=== PATIENT | female | born 1955 | race Caucasian/White ===

== ENCOUNTER 2021-08-13 11:21 | Emergency (ER) | payer OTHER ==
--- NOTE | 2021-08-13 12:06 | RAD REPORT ---
EXAM DESCRIPTION: CT - Ct Stroke Brain Wo Cont - 08/13/2021 11:59 am CLINICAL HISTORY: Neuro deficit, acute, stroke suspected Headache, drowsiness, CVA symptomology COMPARISON: No comparisons TECHNIQUE: All CT scans are performed using dose optimization technique as appropriate and may inclu de automated exposure control or mA/KV adjustment according to patient size. FINDINGS: No intracranial hemorrhage, hydrocephalus or extra-axial fluid collection.Mild brain atrop hy noted.No areas of brain edema or evidence of midline shift. The paranasal sinuses and mastoids are clear. The calvarium is intact. IMPRESSION: No acute intracranial abnormality. The findings were discussed with Dr. Santacruz in the ER On 08/13/2021 at 12:01 p.m. by telephone.
--- NOTE | 2021-08-13 12:29 | RAD REPORT ---
EXAM DESCRIPTION: RAD - Chest Single View - 08/13/2021 12:04 pm CLINICAL HISTORY: weak Chest pain. COMPARISON: No comparisons FINDINGS: Portable technique limits examination quality. The lungs are grossly clear. The heart is normal in size. No displaced fractures. IMPRESSION: No acute intrathoracic process suspected.
[2021-08-13 13:03] LABS: Hematocrit 36.1 % (36.0-45.0); MPV 8.4 fL (7.6-11.3); Potassium 4.9 mmol/L (3.5-5.1); RBC Red Blood Cell Count 4.13 M/uL (3.86-4.86)
[2021-08-13 13:08] LABS: Protime INR 0.92
--- NOTE | 2021-08-13 16:44 | RAD REPORT ---
EXAM DESCRIPTION: MRI - Brain W/Wo Cont - 08/13/2021 4:19 pm CLINICAL HISTORY: Weakness COMPARISON: MRA Head Wo Cont dated 08/13/2021; Ct Stroke Brain Wo Cont dated 08/13/2021 TECHNIQUE: Sagittal T1-weighted images were obtained along with PD/heavily T2-weighted and T2-FLAIR images. Axial DWI and ADC mapping sequences were also obtained along with coronal heavily T2-weighted images were obtained. Post contrast enhanced images were obtained. FINDINGS: No intracranial hemorrhage, mass or acute infarction. No edema or shift of midline structu res. No extra-axial fluid collections. Signal voids are seen as a normal finding in the major intracr anial vessels. Mild nonspecific T2/FLAIR hyperintense signal foci within the centrum semiovale and co aidee radiata. No abnormal enhancement. No mastoid effusion.Paranasal sinuses are clear. IMPRESSION: No acute intracranial abnormality. No abnormal enhancement. Mild chronic small vessel is chemic changes.
--- NOTE | 2021-08-13 16:51 | RAD REPORT ---
EXAM DESCRIPTION: MRI - MRA Head Wo Cont - 08/13/2021 4:18 pm CLINICAL HISTORY: Weakness CVA COMPARISON: Abdomen Pelvis W Contrast dated 02/22/2021; Abdomen Pelvis W Contrast dated 06/21/2020 ; Abdomen Pelvis W Contrast dated 03/19/2017; Abdomen Pelvis W Contrast dated 04/02/2016; CT ABD PEL VIS W CONTRAST dated 04/12/2008No comparisons FINDINGS: 3D noncontrast [id number] MR angiography of the lummi of Mata was performed. No aneurysm, flow-limiting stenosis or vascular malformation is seen. Forward flow seen in codominant vertebral arteries. The visualized dural venous sinuses appear patent. IMPRESSION: No significant flow abnormality of the lummi of Mata is identified.
--- NOTE | 2021-08-13 16:57 | RAD REPORT ---
EXAM DESCRIPTION: MRI - MRA Neck W/Wo Cont - 08/13/2021 4:19 pm CLINICAL HISTORY: Weakness COMPARISON: No comparisons FINDINGS: Contrast enhance 2D [id number] MR angiography of the neck vessels was performed. Both carotid systems are widely patent. Three vessel aortic arch. The vertebral arteries are patent a nd codominant. IMPRESSION: Unremarkable MRA of the neck. No flow limiting stenoses.
--- NOTE | 2021-08-13 17:17 | EDPHYS ---
Physician Documentation [facility] Name: Sarah Pepper Age: 65 yrs Sex: Female : 1955 Arrival Date: 08/13/2021 Time: 11:22 Bed 20 Private MD: ED Physician Parish Santacruz HPI: 08/13 15:37 This 65 yrs old Female presents to ER via Ambulatory with complaints of S/S of Possible kdr Stroke - 2 days ago. 15:37 Patient presents emergency department with weakness that results in her falling or kdr nearly falling over the past few months. This is been a progressive process. She is noted that her blood pressure has been elevated as well during this period of time. Though there are times when it is particularly low as well. Family member who is with the the patient states that there the patient's speech appears slurred. Patient had consulted her PCP who recommended that she be evaluated in the ER for possible stroke. Patient is alert and oriented and nontoxic-appearing in the ED.. Onset: The symptoms/episode began/occurred at an unknown time. Increasingly weak and off balance over the past few days. This has been an intermittent problem though for months.. Historical: - Allergies: 11:29 No Known Allergies; ss - PMHx: 11:29 Hypothyroidism; Hypertension; Chronic back pain; ss - Immunization history:: Client reports having NOT received the Covid vaccine. - Social history:: Smoking status: Patient/guardian denies using tobacco, Stopped _ months ago 15. ROS: 15:37 Constitutional: Negative for fever, chills, and weight loss, Eyes: Negative for injury, kdr pain, redness, and discharge, Neck: Negative for injury, pain, and swelling, Cardiovascular: Negative for chest pain, palpitations, and edema, Respiratory: Negative for shortness of breath, cough, wheezing, and pleuritic chest pain, Abdomen/GI: Negative for abdominal pain, nausea, vomiting, diarrhea, and constipation, Back: Negative for injury and pain, MS/Extremity: Negative for injury and deformity, Skin: Negative for injury, rash, and discoloration, Psych: Negative for depression, anxiety, suicide ideation, homicidal ideation, and hallucinations, Allergy/Immunology: Negative for hives, rash, and allergies, Endocrine: Negative for neck swelling, polydipsia, polyuria, polyphagia, and marked weight changes. 15:37 Neuro: Positive for gait disturbance, speech changes, weakness, Off Balance and weak. Exam: 15:50 ECG was reviewed by the Attending Physician. kdr 17:29 Constitutional: This is a well developed, well nourished patient who is awake, alert, kdr and in no acute distress. Head/Face: Normocephalic, atraumatic. Eyes: Pupils equal round and reactive to light, extra-ocular motions intact. Lids and lashes normal. Conjunctiva and sclera are non-icteric and not injected. Cornea within normal limits. Periorbital areas with no swelling, redness, or edema. Neck: Trachea midline, no thyromegaly or masses palpated, and no cervical lymphadenopathy. Supple, full range of motion without nuchal rigidity, or vertebral point tenderness. No Meningismus. Chest/axilla: Normal chest wall appearance and motion. Nontender with no deformity. No lesions are appreciated. Cardiovascular: Regular rate and rhythm with a normal S1 and S2. No gallops, murmurs, or rubs. Normal PMI, no JVD. No pulse deficits. Respiratory: Lungs have equal breath sounds bilaterally, clear to auscultation and percussion. No rales, rhonchi or wheezes noted. No increased work of breathing, no retractions or nasal flaring. Abdomen/GI: Soft, non-tender, with normal bowel sounds. No distension or tympany. No guarding or rebound. No evidence of tenderness throughout. Back: No spinal tenderness. No costovertebral tenderness. Full range of motion. Skin: Warm, dry with normal turgor. Normal color with no rashes, no lesions, and no evidence of cellulitis. MS/ Extremity: Pulses equal, no cyanosis. Neurovascular intact. Full, normal range of motion. Neuro: Awake and alert, GCS 15, oriented to person, place, time, and situation. Cranial nerves II-XII grossly intact. Motor strength 5/5 in all extremities. Sensory grossly intact. Cerebellar exam normal. Normal gait. Psych: Awake, alert, with orientation to person, place and time. Behavior, mood, and affect are within normal limits. Vital Signs: 11:26 BP 100 / 82; Pulse 73; Resp 16; Temp 97.5(TE); Pulse Ox 98% on R/A; Weight 72.57 kg; ss Height 5 ft. 2 in. (157.48 cm); Pain 0/10; 12:48 BP 127 / 82; Pulse 61; Resp 20; Pulse Ox 100% on R/A; tw2 14:10 BP 151 / 86; Pulse 65; Resp 15; Pulse Ox 97% on R/A; tw2 16:24 BP 164 / 82; Pulse 84; Resp 17; Pulse Ox 100% on R/A; tw2 11:26 Body Mass Index 29.26 (72.57 kg, 157.48 cm) NIH Stroke Scale Scores: 11:31 NIHSS Score: 0 ss 17:29 NIHSS Score: 0 kdr MDM: 17:16 Patient medically screened. kdr 17:29 Data reviewed: vital signs, nurses notes, lab test result(s), radiologic studies. kdr Counseling: I had a detailed discussion with the patient and/or guardian regarding: the historical points, exam findings, and any diagnostic results supporting the discharge/admit diagnosis, lab results, radiology results, the need for outpatient follow up. 08/13 11:49 Order name: Basic Metabolic Panel; Complete Time: 14:09 kdr 08/13 11:49 Order name: CBC with Diff; Complete Time: 14:09 kdr 08/13 11:49 Order name: Protime (+inr); Complete Time: 14:09 kdr 08/13 11:49 Order name: Ptt, Activated; Complete Time: 14:09 kdr 08/13 11:49 Order name: CT Stroke Brain w/o Contrast; Complete Time: 14:09 kdr 08/13 11:49 Order name: Stroke CXR 1 View; Complete Time: 14:09 kdr 08/13 11:49 Order name: EKG; Complete Time: 11:50 kdr 08/13 11:49 Order name: Cardiac monitoring; Complete Time: 11:51 kdr 08/13 11:49 Order name: EKG - Nurse/Tech; Complete Time: 11:51 kdr 08/13 15:08 Order name: MRA Head Wo Cont; Complete Time: 16:53 EDMS 08/13 15:10 Order name: Brain W/Wo Cont; Complete Time: 16:53 EDMS 08/13 15:10 Order name: MRA Neck W/Wo Cont; Complete Time: 17:07 EDMS 08/13 11:49 Order name: IV Saline Lock; Complete Time: 12:34 kdr 08/13 11:49 Order name: Labs collected and sent; Complete Time: 12:34 [facility] 08/13 11:49 Order name: NPO; Complete Time: 17:13 [facility] 08/13 11:49 Order name: O2 Per Protocol; Complete Time: 12:34 [facility] 08/13 11:49 Order name: O2 Sat Monitoring; Complete Time: 12:34 [facility] 08/13 11:49 Order name: Stroke Swallow Screen; Complete Time: 12:44 kdr EC:50 Rate is 62 beats/min. Rhythm is regular, Sinus Rhythm with No ectopy. QRS [place] is kdr Normal. PA interval is normal. QRS interval is normal. QT interval is normal. Clinical impression: NSR w/ Non-specific ST/T Changes. Administered Medications: No medications were administered Disposition Summary: 08/13/21 17:16 Discharge Ordered Location: Home kdr Problem: new kdr Symptoms: are resolved kdr Condition: Stable kdr Diagnosis - Weakness kdr - Syncope Near kdr Followup: kdr - With: Private Physician - When: 1 - 2 days - Reason: If symptoms return, Further diagnostic work-up, Recheck today's complaints, Continuance of care, Re-evaluation by your physician Discharge Instructions: - Discharge Summary Sheet kdr - Near-Syncope, [id number] kdr - Syncope, [id number] kdr - Weakness, [id number] kdr Forms: - Medication Reconciliation Form kdr - Thank You Letter kdr NIH Stroke Scale - NIH Stroke Score Date: 08/13/2021 Time: 11:31 Total Score = 0 1a. Level of Consciousness (LOC) - 0(Alert) 1b. Level of Consciousness (LOC) (Month \T\ Age) - 0(Both) 1c. LOC Commands (Open \T\ Closes Eyes/Highway Maintenance Technician) - 0(Both) 2. Best Gaze (Lateral Gaze Paresis) - 0(Normal) 3. Visual Field Loss - 0(No visual loss) 4. Facial Palsy - 0(Normal) 5a. Left Arm: Motor (10-second hold) - 0(No drift) 5b. Right Arm: Motor (10-second hold) - 0(No drift) 6a. Left Leg: Motor (5-second hold - always test supine) - 0(No drift) 6b. Right Leg: Motor (5-second hold - always test supine) - 0(No drift) 7. Limb Ataxia (finger/nose \T\ heel/tejeda - test with eyes open) - 0(Absent) 8. Sensory Loss (pinprick arms/legs/face) - 0(Normal) 9. Best Language: Aphasia (description/naming/reading) - 0(No aphasia) 10. Dysarthria (speech clarity - read or repeat words) - 0(Normal) 11. Extinction and Inattention (visual/tactile/auditory/spatial/personal) - 0(No abnormality) Initials: NIH Stroke Scale - NIH Stroke Score Date: 08/13/2021 Time: 17:29 Total Score = 0 1a. Level of Consciousness (LOC) - 0(Alert) 1b. Level of Consciousness (LOC) (Month \T\ Age) - 0(Both) 1c. LOC Commands (Open \T\ Closes Eyes/Highway Maintenance Technician) - 0(Both) 2. Best Gaze (Lateral Gaze Paresis) - 0(Normal) 3. Visual Field Loss - 0(No visual loss) 4. Facial Palsy - 0(Normal) 5a. Left Arm: Motor (10-second hold) - 0(No drift) 5b. Right Arm: Motor (10-second hold) - 0(No drift) 6a. Left Leg: Motor (5-second hold - always test supine) - 0(No drift) 6b. Right Leg: Motor (5-second hold - always test supine) - 0(No drift) 7. Limb Ataxia (finger/nose \T\ heel/tejeda - test with eyes open) - 0(Absent) 8. Sensory Loss (pinprick arms/legs/face) - 0(Normal) 9. Best Language: Aphasia (description/naming/reading) - 0(No aphasia) 10. Dysarthria (speech clarity - read or repeat words) - 0(Normal) 11. Extinction and Inattention (visual/tactile/auditory/spatial/personal) - 0(No abnormality) Initials: kdr Signatures: Dispatcher [employer] EDMS Parish Santacruz MD MD kdr Alysha Douglas RN RN ss Corrections: (The following items were deleted from the chart) 12:34 11:49 Accucheck ordered. kdr tw2 15:08 12:23 MR STROKE PROTOCOL+MRI.RAD.BRZ ordered. EDMS EDMS
--- NOTE | 2021-08-13 17:17 | ER ---
Nurse's Notes [facility] Name: Sarah Pepper Age: 65 yrs Sex: Female : 1955 Arrival Date: 08/13/2021 Time: 11:22 Bed 20 Private MD: Diagnosis: Weakness;Syncope Near Presentation: 08/13 11:26 Chief complaint: Patient states: "I almost fell yesterday, but I had fallen 4-5 times ss over the past few months and my blood pressure goes 200/100 something and then it'll go low and I'm on blood pressure medications." Family member reports that patient's speech seems more slurred. PCP recommended that patient be evaluated in ER for possible TIA. Coronavirus screen: Client denies travel out of the [place] in the last 14 days. Ebola Screen: Patient denies exposure to infectious person. Patient denies travel to an Ebola-affected area in the 21 days before illness onset. No acute neurological deficit is noted. Pre-hospital glucose is not applicable to this patient. Initial Sepsis Screen: Does the patient meet any 2 criteria? No. Patient's initial sepsis screen is negative. Does the patient have a suspected source of infection? No. Patient's initial sepsis screen is negative. Risk Assessment: Do you want to hurt yourself or someone else? Patient reports no desire to harm self or others. Onset of symptoms is unknown. 11:26 Method Of Arrival: Ambulatory ss 11:26 Acuity: SHABNAM 3 ss Stroke Activation: Symptom onset > 6 hours Physician: Stroke Attending; Name: ; Notified At: ; Arrived At: Physician: Chief Stroke Resident; Name: ; Notified At: ; Arrived At: Physician: Stroke Resident; Name: ; Notified At: ; Arrived At: Physician: ED Attending; Name: ; Notified At: ; Arrived At: Physician: ED Resident; Name: ; Notified At: ; Arrived At: Historical: - Allergies: 11:29 No Known Allergies; ss - PMHx: 11:29 Hypothyroidism; Hypertension; Chronic back pain; ss - Immunization history:: Client reports having NOT received the Covid vaccine. - Social history:: Smoking status: Patient/guardian denies using tobacco, Stopped _ months ago 15. Screenin:31 Abuse screen: Denies threats or abuse. Denies injuries from another. Nutritional ss screening: No deficits noted. Tuberculosis screening: Never had TB. 11:39 Fall Risk None identified. tw2 12:40 Patient has been NPO before screening. The patient is alert, able to follow commands. tw2 The patient does not exhibit slurred or garbled speech The patient is not exhibiting difficulty speaking. The patient does not exhibit difficulty understanding words. The patient is able to swallow own secretions with no drooling or need for suction. Patient tolerated one teaspoon of water. No drooling, immediate coughing, gurgling, or clearing of the throat was noted. The patient tolerated 90mL of water. No drooling, immediate coughing, gurgling, or clearing of the throat was noted. The patient passed the bedside swallow screening. Oral medications may be given as ordered. Contact Physician for further diet orders. Provider notified of bedside swallow screening results: Parish Santacruz MD. Assessment: 11:39 Reassessment: pts family member at bedside states "she will just start talking really tw2 slow at times, and then fall asleep while eating other times, and then its like she has been forgetful and will ask the same question over and over again.". 11:59 Reassessment: pt is in imaging at this time, not available for blood work at this time. tw2 12:48 Reassessment: Patient appears in no apparent distress at this time. No changes from tw2 previously documented assessment. Patient and/or family updated on plan of care and expected duration. Pain level reassessed. Patient is alert, oriented x 3, equal unlabored respirations, skin warm/dry/pink. 14:10 Reassessment: Patient appears in no apparent distress at this time. No changes from tw2 previously documented assessment. Patient and/or family updated on plan of care and expected duration. Pain level reassessed. Patient is alert, oriented x 3, equal unlabored respirations, skin warm/dry/pink. 16:24 Reassessment: Patient and/or family updated on plan of care and expected duration. Pain tw2 level reassessed. Patient is alert, oriented x 3, equal unlabored respirations, skin warm/dry/pink. pt back from imaging. nad. 17:10 Reassessment: provider at bedside with results at this time. tw2 17:34 Reassessment: Patient appears in no apparent distress at this time. No changes from tw2 previously documented assessment. Patient is alert, oriented x 3, equal unlabored respirations, skin warm/dry/pink. Vital Signs: 11:26 BP 100 / 82; Pulse 73; Resp 16; Temp 97.5(TE); Pulse Ox 98% on R/A; Weight 72.57 kg; ss Height 5 ft. 2 in. (157.48 cm); Pain 0/10; 12:48 BP 127 / 82; Pulse 61; Resp 20; Pulse Ox 100% on R/A; tw2 14:10 BP 151 / 86; Pulse 65; Resp 15; Pulse Ox 97% on R/A; tw2 16:24 BP 164 / 82; Pulse 84; Resp 17; Pulse Ox 100% on R/A; tw2 11:26 Body Mass Index 29.26 (72.57 kg, 157.48 cm) ss NIH Stroke Scale Scores: 11:31 NIHSS Score: 0 ss 17:29 NIHSS Score: 0 kdr ED Course: 11:22 Patient arrived in ED. am2 11:25 Parish Santacruz MD is Attending Physician. kdr 11:29 Triage completed. ss 11:29 Arm band placed on right wrist. ss 11:33 Placed in gown. Bed in low position. Client placed on continuous cardiac and pulse tw2 oximetry monitoring. NIBP monitoring applied. media monitor on. Pulse ox on. Warm blanket given. 11:35 Zeenat Valladares, RN is Primary Nurse. tw2 11:51 EKG done, by ED staff, reviewed by Parish Santacruz MD. mh5 11:52 Patient has correct armband on for positive identification. Call light in reach. Side mh5 rails up X 1. Pillow given. 12:01 CT Stroke Brain w/o Contrast In Process Unspecified. EDMS 12:04 Stroke CXR 1 View In Process Unspecified. EDMS 12:34 Missed attempt(s): 20 gauge in right antecubital area. Bleeding controlled, band aid tw2 applied, catheter tip intact. Inserted saline lock: 22 gauge in left antecubital area, using aseptic technique. Blood collected. 14:10 Awaiting: MRI testing. tw2 15:07 Patient moved to MRI via wheelchair. tw2 16:20 MRA Head Wo Cont In Process Unspecified. EDMS 16:20 Brain W/Wo Cont In Process Unspecified. EDMS 16:21 MRA Neck W/Wo Cont In Process Unspecified. EDMS 17:34 No provider procedures requiring assistance completed. IV discontinued, intact, tw2 bleeding controlled, No redness/swelling at site. Pressure dressing applied. Administered Medications: No medications were administered Outcome: 17:16 Discharge ordered by . kdr 17:34 Discharged to home ambulatory, with family. tw2 17:34 Condition: stable 17:34 Discharge instructions given to patient, family, Instructed on discharge instructions, follow up and referral plans. Demonstrated understanding of instructions, follow-up care. 17:35 Patient left the ED. tw2 NIH Stroke Scale - NIH Stroke Score Date: 08/13/2021 Time: 11:31 Total Score = 0 1a. Level of Consciousness (LOC) - 0(Alert) 1b. Level of Consciousness (LOC) (Month \\T\\ Age) - 0(Both) 1c. LOC Commands (Open \\T\\ Closes Eyes/Local City Driver) - 0(Both) 2. Best Gaze (Lateral Gaze Paresis) - 0(Normal) 3. Visual Field Loss - 0(No visual loss) 4. Facial Palsy - 0(Normal) 5a. Left Arm: Motor (10-second hold) - 0(No drift) 5b. Right Arm: Motor (10-second hold) - 0(No drift) 6a. Left Leg: Motor (5-second hold - always test supine) - 0(No drift) 6b. Right Leg: Motor (5-second hold - always test supine) - 0(No drift) 7. Limb Ataxia (finger/nose \\T\\ heel/tejeda - test with eyes open) - 0(Absent) 8. Sensory Loss (pinprick arms/legs/face) - 0(Normal) 9. Best Language: Aphasia (description/naming/reading) - 0(No aphasia) 10. Dysarthria (speech clarity - read or repeat words) - 0(Normal) 11. Extinction and Inattention (visual/tactile/auditory/spatial/personal) - 0(No abnormality) Initials: NIH Stroke Scale - NIH Stroke Score Date: 08/13/2021 Time: 17:29 Total Score = 0 1a. Level of Consciousness (LOC) - 0(Alert) 1b. Level of Consciousness (LOC) (Month \\T\\ Age) - 0(Both) 1c. LOC Commands (Open \\T\\ Closes Eyes/Local City Driver) - 0(Both) 2. Best Gaze (Lateral Gaze Paresis) - 0(Normal) 3. Visual Field Loss - 0(No visual loss) 4. Facial Palsy - 0(Normal) 5a. Left Arm: Motor (10-second hold) - 0(No drift) 5b. Right Arm: Motor (10-second hold) - 0(No drift) 6a. Left Leg: Motor (5-second hold - always test supine) - 0(No drift) 6b. Right Leg: Motor (5-second hold - always test supine) - 0(No drift) 7. Limb Ataxia (finger/nose \\T\\ heel/tejeda - test with eyes open) - 0(Absent) 8. Sensory Loss (pinprick arms/legs/face) - 0(Normal) 9. Best Language: Aphasia (description/naming/reading) - 0(No aphasia) 10. Dysarthria (speech clarity - read or repeat words) - 0(Normal) 11. Extinction and Inattention (visual/tactile/auditory/spatial/personal) - 0(No abnormality) Initials: kdr Signatures: Dispatcher [employer] EDMS Parish Santacruz MD MD [facility] Alysha Douglas RN RN ss Wise, Tara, RN RN [facility] Micaela Hoang [facility] Lyla Navarro
[2021-08-13 18:01] VITALS: TEMP 97.5
[2021-08-13 18:06] VITALS: BP 164/82; O2SAT 100
--- NOTE | 2021-08-14 13:47 | EKG ---
Test Date: 2021-08-13 Test Time: 12:36:40 Supply Chain Logistics Manager: COLT MEASUREMENT RESULTS: Intervals: Rate: 62 DC: 192 QRSD: 92 QT: 436 QTc: 442 [place]: P: 45 DC: 192 QRS: 27 T: 73 INTERPRETIVE STATEMENTS: Normal sinus rhythm Nonspecific T wave abnormality Abnormal ECG No previous ECG available for comparison Electronically Signed On 08-14-21 13:45:54 CDT by Ambrose Gee
== END 2021-08-13 17:35 | disposition home or self-care (01) ==
LOC: ER 11:21
DX: R53.1 Weakness (principal); R55 Syncope and collapse; I10 Essential (primary) hypertension; E03.9 Hypothyroidism, unspecified
CPT/HCPCS: 93005; 85025; 80048; 36415; 85610; 85730; 70450; 71045; 70553; 70544; 70549; 99285; A9577

== ENCOUNTER 2022-02-09 13:56 | Emergency (ER) | payer OTHER ==
[2022-02-09] MEDS ORDERED: HYDROCODONE/CHLORPHEN 5 ML/OSYR ONE (15:33)
--- NOTE | 2022-02-09 15:59 | RAD REPORT ---
EXAM DESCRIPTION: RAD - Chest Pa And Lat (2 Views) - 02/09/2022 3:49 pm CLINICAL HISTORY: Cough COMPARISON: Chest Single View dated 08/13/2021 FINDINGS: Lines: None. Lungs: No evidence of edema or pneumonia. Pleural: No significant pleural effusions or pneumothorax. Cardiac: The heart size is within normal limits. Mediastinum: Within normal limits. Bones: No acute fractures. Thoracolumbar curvature. Other: None IMPRESSION: No acute cardiopulmonary disease.
[2022-02-09 18:08] LABS: SARS-COV-2 RT PCR NEGATIVE (NEGATIVE)
--- NOTE | 2022-02-09 18:29 | EDPHYS ---
Physician Documentation [facility] Name: Sarah Pepper Age: 66 yrs Sex: Female : 1955 Arrival Date: 02/09/2022 Time: 13:58 Bed 10 Private MD: Kasey Oakley ED Physician Tigre Mccann HPI: 02/09 19:31 This 66 yrs old Female presents to ER via Wheelchair with complaints of Cough, kb Abdominal Pain. 19:31 The patient or guardian reports cough, that is intermittent, described as moderate. kb Onset: The symptoms/episode began/occurred 4 day(s) ago. Severity of symptoms: At their worst the symptoms were moderate, in the emergency department the symptoms are unchanged. Modifying factors: The symptoms are alleviated by nothing, the symptoms are aggravated by nothing. Associated signs and symptoms: Pertinent positives: chest pain, with cough, rhinorrhea, Pertinent negatives: diarrhea, ear ache, fever, nausea, sore throat, vomiting. The patient has not experienced similar symptoms in the past. The patient has not recently seen a physician. Pt reports she has had cough and congestion for 4 days. states she now has pain below left breast when she coughs. . Historical: - Allergies: 15:27 No Known Allergies; ss - PMHx: 15:27 chronic back pain; Hypertension; Hypothyroidism; ss - Immunization history:: Client reports having NOT received the Covid vaccine. - Social history:: Smoking status: Patient/guardian denies using tobacco, the patient reports quitting approximately 1 years ago. ROS: 19:30 Constitutional: Negative for fever, chills, and weight loss. kb 19:30 ENT: Positive for rhinorrhea, sinus congestion. 19:30 Cardiovascular: Positive for chest pain, with cough. 19:30 Respiratory: Positive for cough. 19:30 All other systems are negative. Exam: 19:30 Constitutional: This is a well developed, well nourished patient who is awake, alert, kb and in no acute distress. Head/Face: Normocephalic, atraumatic. ENT: Moist Mucous membranes Cardiovascular: Regular rate and rhythm with a normal S1 and S2. No gallops, murmurs, or rubs. No pulse deficits. Respiratory: Respirations even and unlabored. No increased work of breathing. Talking in full sentences Abdomen/GI: Soft, non-tender. No distention Skin: Warm, dry with normal turgor. Normal color. MS/ Extremity: Pulses equal, no cyanosis. Neurovascular intact. Full, normal range of motion. Neuro: Awake and alert, GCS 15, oriented to person, place, time, and situation. Moves all extremities. Normal gait. 19:30 Chest/axilla: Palpation: tenderness, that is moderate, of the left breast, that totally reproduces the patient's complaints. Vital Signs: 15:25 BP 105 / 87; Pulse 93; Resp 20; Temp 97.4(TE); Pulse Ox 100% on R/A; Weight 72.57 kg; ss Height 5 ft. 2 in. (157.48 cm); Pain 0/10; 17:04 BP 140 / 88; Pulse 88; Resp 18; Pulse Ox 99% on R/A; em6 18:00 BP 138 / 84; Pulse 84; Resp 18; Pulse Ox 99% on R/A; iw 15:25 Body Mass Index 29.26 (72.57 kg, 157.48 cm) ss MDM: 15:31 Patient medically screened. kb 19:30 Data reviewed: vital signs, nurses notes. Data interpreted: Pulse oximetry: on room air kb is 99 %. Interpretation: normal. Counseling: I had a detailed discussion with the patient and/or guardian regarding: the historical points, exam findings, and any diagnostic results supporting the discharge/admit diagnosis, lab results, radiology results, the need for outpatient follow up, a family practitioner, to return to the emergency department if symptoms worsen or persist or if there are any questions or concerns that arise at home. ED course: Pt was prescribed antibiotics and steroids by PCP that pt picked up today. . 02/09 15:31 Order name: COVID-19/FLU A+B; Complete Time: 18:12 kb 02/09 15:31 Order name: Chest Pa And Lat (2 Views) XRAY; Complete Time: 16:02 kb Administered Medications: 15:34 Drug: Tussionex Pennkinetic ER (chlorpheniramine-hydrocodone) Suspension 5 ml Route: PO;ss 18:55 Not Given (Patient Eloped): SOLU-Medrol (methylPREDNISolone sodium succinate) 125 mg IM iw once Disposition: 19:55 Co-signature as Attending Physician, Tigre Mccann DO I was immediately available on-site ms3 in the Emergency Department for consultation in the care of the patient.. Disposition Summary: 02/09/22 18:29 Discharge Ordered Location: Home kb Condition: Stable kb Diagnosis - Acute bronchitis, unspecified kb Followup: kb - With: Emergency Department - When: As needed - Reason: Worsening of condition Followup: kb - With: Private Physician - When: 2 - 3 days - Reason: Recheck today's complaints, Continuance of care, Re-evaluation by your physician Discharge Instructions: - Discharge Summary Sheet kb - Acute Bronchitis, Adult, [id number] kb Forms: - Medication Reconciliation Form kb - Thank You Letter kb - Antibiotic Education kb - Prescription Opioid Use kb Signatures: Dispatcher [employer] EDMS Bethany Lea, COSTUME TECHNICIAN-C ISSA-Alysha Palomares, RN RN Tigre Noriega DO DO ms3 Jeannine Smalls RN iw
--- NOTE | 2022-02-09 18:29 | ER ---
Nurse's Notes [facility] Name: Sarah Pepper Age: 66 yrs Sex: Female : 1955 Arrival Date: 02/09/2022 Time: 13:58 Bed 10 Private MD: Kasey Oakley Diagnosis: Acute bronchitis, unspecified Presentation: 02/09 15:25 Chief complaint: Patient states: pain to LUQ when coughing. Fever that began last ss night, cough began 2 days ago. Pt reports she becomes sob with exertion. Coronavirus screen: Client denies travel out of the [place] in the last 14 days. Ebola Screen: Patient denies exposure to infectious person. Patient denies travel to an Ebola-affected area in the 21 days before illness onset. Initial Sepsis Screen: Does the patient meet any 2 criteria? No. Patient's initial sepsis screen is negative. Does the patient have a suspected source of infection? No. Patient's initial sepsis screen is negative. Risk Assessment: Do you want to hurt yourself or someone else? Patient reports no desire to harm self or others. Onset of symptoms was February 07, 2022. 15:25 Method Of Arrival: Wheelchair ss 15:25 Acuity: SHABNAM 3 ss Historical: - Allergies: 15:27 No Known Allergies; ss - PMHx: 15:27 chronic back pain; Hypertension; Hypothyroidism; ss - Immunization history:: Client reports having NOT received the Covid vaccine. - Social history:: Smoking status: Patient/guardian denies using tobacco, the patient reports quitting approximately 1 years ago. Screenin:00 Fall Risk Total Prabhakar Fall Scale indicates No Risk (0-24 pts). iw 17:08 Abuse screen: Denies threats or abuse. Nutritional screening: No deficits noted. em6 Tuberculosis screening: No symptoms or risk factors identified. Assessment: 17:05 General: Appears in no apparent distress. Behavior is cooperative. Pain: Complains of em6 pain in left upper quadrant Pain does not radiate. Pain currently is 7 out of 10 on a pain scale. 17:08 Neuro: Level of Consciousness is awake, alert, obeys commands, Oriented to person, em6 place, time, situation. Cardiovascular: Heart tones present Patient's skin is warm and dry. Respiratory: Airway is patent Respiratory effort is even, unlabored, Respiratory pattern is regular, symmetrical, Breath sounds are clear bilaterally. GI: Abdomen is non-distended, Bowel sounds present X 4 quads. Abd is soft and non tender X 4 quads. : No signs and/or symptoms were reported regarding the genitourinary system. EENT: No signs and/or symptoms were reported regarding the EENT system. Derm: No signs and/or symptoms reported regarding the dermatologic system. Musculoskeletal: Circulation, motion, and sensation intact. Range of motion: intact in all extremities. 18:00 Reassessment: Patient appears in no apparent distress at this time. No changes from em6 previously documented assessment. Patient and/or family updated on plan of care and expected duration. Pain level reassessed. Patient is alert, oriented x 3, equal unlabored respirations, skin warm/dry/pink. Vital Signs: 15:25 BP 105 / 87; Pulse 93; Resp 20; Temp 97.4(TE); Pulse Ox 100% on R/A; Weight 72.57 kg; ss Height 5 ft. 2 in. (157.48 cm); Pain 0/10; 17:04 BP 140 / 88; Pulse 88; Resp 18; Pulse Ox 99% on R/A; em6 18:00 BP 138 / 84; Pulse 84; Resp 18; Pulse Ox 99% on R/A; iw 15:25 Body Mass Index 29.26 (72.57 kg, 157.48 cm) ED Course: 13:58 Patient arrived in ED. mr 13:58 Kasey Oakley MD is Private Physician. mr 14:37 Bethany Lea FNP-C is [facility]. kb 14:37 Tigre Mccann DO is Attending Physician. kb 15:27 Triage completed. ss 15:27 Arm band placed on right wrist. ss 15:51 Chest Pa And Lat (2 Views) XRAY In Process Unspecified. EDMS 17:04 Virginia Hoang, RN is Primary Nurse. em6 17:04 COVID-19/FLU A+B Sent. em6 17:08 Bed in low position. Call light in reach. Side rails up X2. Pulse ox on. NIBP on. Warm em6 blanket given. 18:56 No provider procedures requiring assistance completed. Patient did not have IV access iw during this emergency room visit. Administered Medications: 15:34 Drug: Tussionex Pennkinetic ER (chlorpheniramine-hydrocodone) Suspension 5 ml Route: PO;ss 18:55 Not Given (Patient Eloped): SOLU-Medrol (methylPREDNISolone sodium succinate) 125 mg IM iw once Medication: 18:57 VIS not applicable for this client. iw Outcome: 18:29 Discharge ordered by . ramirez 18:57 Discharged to home ambulatory. iw 18:57 Condition: stable 18:57 Discharge instructions given to patient, Instructed on discharge instructions, follow up and referral plans. Demonstrated understanding of instructions, follow-up care. 18:57 Patient left the ED. iw Signatures: Dispatcher [employer] EDMS Bethany Lea, MANAGER HUMAN RESOURCES-C MANAGER HUMAN RESOURCES-Gilma Sheppard mr Jeannine Smalls, RN RN Alysha Currie RN RN ss Martinez, Erika, RN RN em6
[2022-02-09] MEDS ORDERED: METHYLPREDNISOLONE 125 MG INJ ONE (18:55)
[2022-02-09 19:02] VITALS: TEMP 97.4
[2022-02-09 19:03] VITALS: O2SAT 99
[2022-02-09 19:04] VITALS: BP 138/84
== END 2022-02-09 18:57 | disposition home or self-care (01) ==
LOC: ER 13:56
DX: J20.9 Acute bronchitis, unspecified (principal); Z20.822 Contact with and (suspected) exposure to COVID-19; I10 Essential (primary) hypertension
CPT/HCPCS: 0240U; 71046; 99284; J2930

== ENCOUNTER 2024-04-18 13:55 | Emergency (ER) | payer OTHER, MEDICARE ==
--- NOTE | 2024-04-18 14:40 | RAD REPORT ---
EXAM: Chest Single View HISTORY: weaknes COMPARISON: 02/09/2022 FINDINGS: LUNGS/PLEURA: The lungs are clear. No pleural effusions or pneumothorax. No pulmonary edema. MEDIASTINUM: The mediastinal silhouette is within normal limits. CARDIAC: The cardiac silhouette is within normal limits. UPPER ABDOMEN: No significant abnormality. BONES: No acute abnormality. LINES/TUBES/OTHER: N/A IMPRESSION: No evidence of acute cardiopulmonary disease.
--- NOTE | 2024-04-18 14:47 | RAD REPORT ---
EXAMINATION: CT HEAD WITHOUT CONTRAST CLINICAL INDICATION: Female, 68 years old.falls;Weakness TECHNIQUE: Axial CT images from the skull base to the vertex without intravenous contrast. Coronal an d sagittal reformatted images were created from the data set. One or more of the following dose reduction techniques were used: Automated exposure control, adjustment of the mA and/or kV according to patient size, and/or iterative reconstruction. Unless otherwise specified, incidental findings do not require dedicated imaging follow-up. [id number]. COMPARISON: MRI 08/13/2021 FINDINGS: INTRACRANIAL: No acute intracranial hemorrhage. No hydrocephalus. No mass effect or midline shift. Mi ld chronic small vessel ischemic changes. VASCULATURE: No visualized abnormalities in the arteries or dural venous sinuses. SCALP/SKULL: No significant soft tissue or osseous abnormalities. SINUSES: The visualized paranasal sinuses and mastoid air cells are predominantly clear. IMPRESSION: No acute intracranial abnormality.
--- NOTE | 2024-04-18 14:48 | RAD REPORT ---
EXAMINATION: CTA NECK CLINICAL INDICATION: Female, 68 years old. falls, swelling, imbalance TECHNIQUE: Axial CT images were obtained from the aortic arch to the skull base after intravenous con trast utilizing angiographic protocol with 3D post-processing (maximum intensity projection images, volume rendered images and/or shaded surface rendered images). One or more of the following dose redu ction techniques were used: Automated exposure control, adjustment of the mA and/or kV according to patient size, and/or iterative reconstruction. Unless otherwise specified, incidental findings do not require dedicated imaging follow-up. [id number]. NASCET criteria used. Mild 0-49% stenosis Moderate 50-69% stenosis Severe 70-99% stenosis COMPARISON: No prior exam. FINDINGS: AORTA: The imaged aortic arch is normal. CCA: The common carotid arteries are patent and normal in caliber. ICA/ECA: Bilateral internal and external carotid arteries are patent. There is no significant interna l carotid artery stenosis. Where applicable, degree of stenosis is measured using NASCET-like criteria. Mild atherosclerotic plaque at both proximal ICAs. VERTEBRAL: The cervical vertebral arteries are patent and codominant. SOFT TISSUE: No significant neck soft tissue abnormalities. The visualized lung apices are clear. 3D images confirm these findings. IMPRESSION: No arterial dissection or stenosis identified
[2024-04-18 14:49] LABS: Absolute Eosinophils 0.1 K/uL (0-0.5); Absolute Lymphocytes (CBC) 2.8 K/uL (0.7-4.9); Absolute Monocytes 0.5 K/uL (0.1-1.3); Absolute Neutrophil 6.7 K/uL (1.8-8.0); Basophils % 0.3 % (0-1.3); Hematocrit 42.2 % (36.0-45.0); Hemoglobin 14.7 g/dL (12.0-15.0); Lymphocytes % 27.7 % (15.3-44.8); MCH 30.6 pg (27.0-35.0); MCHC 34.8 g/dL (32.0-36.0); MCV 87.9 fL (80-100); MPV 8.7 fL (7.6-11.3); Nucleated Red Blood Cells % 0.1 % (0-0); Platelets 234 thou/uL (152-406); Red Cell Distribution Width 13.6 % (12.1-15.2)
--- NOTE | 2024-04-18 14:50 | RAD REPORT ---
EXAMINATION: CTA HEAD CLINICAL INDICATION: Female, 68 years old. DIZZINESS TECHNIQUE: Axial CT images were obtained through the head after intravenous contrast utilizing angiog raphic protocol with 3D post-processing (maximum intensity projection images, volume rendered images and/or shaded surface rendered images). One or more of the following dose reduction technique s were used: Automated exposure control, adjustment of the mA and/or kV according to patient size, and/or iterative reconstruction. Unless otherwise specified, incidental findings do not require dedic ated imaging follow-up. COMPARISON: MRI neck/head 08/13/2021 FINDINGS: ICA: The petrous, cavernous, and supraclinoid segments of the bilateral internal carotid arteries are normal. The ophthalmic artery origins are visualized and normal. The posterior communicating arteries are patent. Mild calcified plaque at the bilateral cavernous carotids. BHARTI: Anterior cerebral arteries are normal bilaterally. The anterior communicating artery is patent. MCA: Middle cerebral arteries are normal bilaterally. F[employer]: Posterior cerebral arteries are normal bilaterally. Vertebrobasilar: The vertebral arteries are patent. The basilar artery is normal in appearance. 3D images confirm these findings. IMPRESSION: No occlusion, aneurysm, or hemodynamically significant stenosis identified.
[2024-04-18 15:06] LABS: PT Prothrombin Time 10.5 SECONDS (9.4-12.5); PTT, Activated Partial Thromb 32.8 SECONDS (24.3-36.9)
[2024-04-18 15:15] LABS: ALT/SGPT 19 U/L (13-56); AST/SGOT 19 U/L (15-37); Albumin 3.8 g/dL (3.4-5.0); Alkaline Phosphatase 90 U/L (45-117); Anion Gap 5.6 mEq/L (5.0-15.0); BUN Blood Urea Nitrogen 21 mg/dL (7-18); Bicarbonate 30 mEq/L (21-32); Bilirubin Total 0.2 mg/dL (0.2-1.0); Globulin 3.9 g/dL (2.3-3.5); Glomerular Filtration Rate 50 ml/min (=/>90); Glucose Level 91 mg/dL (74-106); Magnesium 1.9 mg/dL (1.6-2.4); Potassium 4.6 mEq/L (3.5-5.1); Protein, Total 7.7 g/dL (6.4-8.2); Sodium Level 136 mEq/L (136-145)
[2024-04-18 15:19] LABS: Bilirubin Direct < 0.2 mg/dL (0-0.2); Troponin High Sensitivity < 3.0 pg/mL (<58.9)
[2024-04-18 16:25] LABS: Sqamous Epithelial <5 /HPF (None Seen); Urine Bacteria None Seen /HPF (<20); Urine Bilirubin NEGATIVE (Negative); Urine Blood Negative (Negative); Urine Clarity Clear (Clear); Urine Color Light-Yellow (Yellow); Urine Culture Reflex Order NOT NEEDED; Urine Glucose NEGATIVE (Negative); Urine Ketones NEGATIVE (Negative); Urine Microscopic Reflex YN ORDER UMIC; Urine Nitrite NEGATIVE (Negative); Urine Protein NEGATIVE (Negative); Urine RBC <5 /HPF (None Seen); Urine Urobilinogen Normal (Normal); Urine WBC <5 /HPF (<5); Urine pH 5.5 (5.0-7.0)
[2024-04-18 16:26] LABS: Specific Gravity > 1.030 (1.005-1.030)
[2024-04-18] MEDS ORDERED: NA CHLORIDE 0.9% 500 ML ONE (16:37)
--- NOTE | 2024-04-18 17:19 | ER ---
Nurse's Notes [facility] Name: Sarah Pepper Age: 68 yrs Sex: Female : 1955 Arrival Date: 04/18/2024 Time: 13:55 Bed 19 Private MD: Diagnosis: Weakness;Fall on same level, unspecified Presentation: 04/18 14:00 Chief complaint: Patient states: has been falling for a month and it seems to be ko1 getting worse, she stands up and starts shaking and falls. Coronavirus screen: At this time, the client does not indicate any symptoms associated with coronavirus-19. Ebola Screen: No symptoms or risks identified at this time. Initial Sepsis Screen: Does the patient meet any 2 criteria? No. Patient's initial sepsis screen is negative. Does the patient have a suspected source of infection? No. Patient's initial sepsis screen is negative. Risk Assessment: Do you want to hurt yourself or someone else? Patient reports no desire to harm self or others. Onset of symptoms is unknown. 14:00 Method Of Arrival: Ambulatory ko1 14:00 Acuity: SHABNAM 3 ko1 Triage Assessment: 14:05 General: Appears in no apparent distress. Behavior is cooperative, appropriate for age, ko1 anxious. Pain: Denies pain. Historical: - Allergies: 14:05 No Known Allergies; ko1 - Home Meds: 14:05 Unable to obtain [Active]; ko1 - PMHx: 14:05 chronic back pain; Hypertension; Hypothyroidism; ko1 - PSHx: 14:05 right foot surgery; Cholecystectomy; ko1 - Immunization history:: Adult Immunizations unknown. - Infectious Disease History:: Denies. - Social history:: Smoking status: Patient denies any tobacco usage or history of. Screenin:15 [facility] ED Fall Risk Assessment (Adult) History of falling in the last 3 months, me1 including since admission Yes- fall prone (multiple falls) (3 pts) Confusion or Disorientation No (0 pts) Intoxicated or Sedated No (0 pts) Impaired Gait Yes (1 pt) Mobility Assist Device Used Yes (1 pt) Altered Elimination No (0 pt) Score/Fall Risk Level 3 or more points = High Risk Maintained a safe environment, Provided non-skid footwear, Hourly rounding (assess needs \T\ fall precautionary measures) done. Abuse screen: Denies threats or abuse. Nutritional screening: No deficits noted. Tuberculosis screening: No symptoms or risk factors identified. Assessment: 15:08 Reassessment: Patient and/or family updated on plan of care and expected duration. Pain ll1 level reassessed. 15:15 General: Appears in no apparent distress. well groomed, well developed, well nourished, me1 Behavior is calm, cooperative, appropriate for age, Reports has been falling for a month and it seems to be getting worse, she stands up and starts shaking and falls. Pain: Complains of pain in right sternocleidomastoid Pain does not radiate. Pain currently is 2 out of 10 on a pain scale. Quality of pain is described as tender, Pain began gradually, Is continuous. Neuro: Level of Consciousness is awake, alert, obeys commands, Oriented to person, place, time, situation, Appropriate for age. Cardiovascular: Patient's skin is warm and dry. Respiratory: Airway is patent Respiratory effort is even, unlabored, Respiratory pattern is regular, symmetrical. GI: No signs and/or symptoms were reported involving the gastrointestinal system. : No signs and/or symptoms were reported regarding the genitourinary system. EENT: No signs and/or symptoms were reported regarding the EENT system. Derm: Skin is intact, is healthy with good turgor, Skin is pink, warm \T\ dry. Musculoskeletal: Reports pain in right sternocleidomastoid. Injury Description: has been falling for a month and it seems to be getting worse, she stands up and starts shaking and falls. Vital Signs: 14:00 BP 128 / 95; Pulse 87; Resp 18; Temp 97.5; Pulse Ox 99% ; ko1 15:25 BP 145 / 83 Supine; Pulse 72; me1 15:26 BP 145 / 82 Sitting; Pulse 73; me1 15:27 BP 123 / 84 Standing; Pulse 73; me1 16:00 BP 146 / 83; Pulse 71; Resp 15; Pulse Ox 98% ; me1 17:00 BP 178 / 68; Pulse 72; Resp 15; Pulse Ox 100% ; me1 17:26 BP 176 / 92; Pulse 81; Resp 16; Temp 98; Pulse Ox 97% ; me1 ED Course: 13:58 Patient arrived in ED. mr 14:00 Bethany Lea FNP-C is [facility]. kb 14:00 Tigre Mccann DO is Attending Physician. kb 14:05 Triage completed. ko1 14:05 Arm band placed on right wrist. Patient placed in waiting room, Patient notified of ko1 wait time. 14:31 Chest Single View XRAY In Process Unspecified. EDMS 14:38 CT completed. Patient tolerated procedure well. Note: [address] g to rt acayesha stein in ct labs sj collected and sent. Patient moved to CT via wheelchair. Patient moved back from CT. 14:39 CT Head Brain wo Cont In Process Unspecified. EDMS 14:39 CT Head Angio In Process Unspecified. EDMS 14:40 CT Neck Angio In Process Unspecified. EDMS 14:45 Inserted saline lock: 20 gauge in right antecubital area, using aseptic technique. me1 15:08 Patient placed in an exam room, on a stretcher. ll1 15:15 Patient has correct armband on for positive identification. Bed in low position. Call me1 light in reach. Side rails up X2. Provided Education on: POC. Verbalized understanding.. Client placed on continuous cardiac and pulse oximetry monitoring. NIBP monitoring applied. property assessment monitor on. Pulse ox on. NIBP on. 15:15 No provider procedures requiring assistance completed. me1 15:20 Nilam Ritter, DORA is Primary Nurse. me1 15:39 Urine collected: clean catch specimen, clear, EKG done, by ED staff, reviewed by me1 Bethany MAXWELL. 17:47 IV discontinued, intact, bleeding controlled, No redness/swelling at site. Pressure me1 dressing applied. Administered Medications: 16:39 CANCELLED (Duplicate Order): ns 0.9% 1000 ml IV at 1000 ml once; to be given as a bolus kb over 60 minutes 16:41 Drug: NS 0.9% IV 500 ml 500 ml IV at 1 bolus once; to be given as a bolus over 30 me1 minutes Volume: 500 ml; Route: IV; Rate: 1 bolus; Site: right antecubital; 17:14 Follow up: Response: No adverse reaction; IV Status: Completed infusion; IV Intake: me1 500ml Medication: 15:15 VIS not applicable for this client. me1 Intake: 17:14 IV: 500ml; Total: 500ml. me1 Outcome: 17:18 Discharge ordered by MD. guzmán 17:47 Discharged to home via wheelchair, with family, me1 17:47 Condition: stable 17:47 Discharge instructions given to patient, family, Instructed on discharge instructions, follow up and referral plans. Demonstrated understanding of instructions, follow-up care, 17:48 Patient left the ED. me1 Signatures: Dispatcher [employer] EDMS Bethany Lea, PELLETISING EXTRUDER OPERATOR-C PELLETISING EXTRUDER OPERATOR-Ckb Gilma Solorzano, Reg Reg Jazzmine Killian sj Yifan Winn, DORA RN ll1 Krista Moseley RN RN ko1 Nilam Ritter RN RN me1 Corrections: (The following items were deleted from the chart) 17:20 14:00 Chief complaint: Patient states: has been falling for a month and it seems to be me1 getting worse, she stands up and starts shaking and falls ko1
--- NOTE | 2024-04-18 17:19 | EDPHYS ---
Physician Documentation [facility] Name: Sarah Pepper Age: 68 yrs Sex: Female : 1955 Arrival Date: 04/18/2024 Time: 13:55 Bed 19 Private MD: ED Physician Tigre Mccann HPI: 04/18 14:11 This 68 yrs old Female presents to ER via Ambulatory with complaints of Fall Injury. kb 14:11 Pt is a 68 year old female who presents for multiple falls, imbalance over the last kb month. States it normally happens when she stands from a sitting position, she gets shaky and can't hold herself up. States it normally happens once or twice per day, but today it has happened 4 times already so she thought she should come in for evaluation. Denies shortness of breath, chest pain. States she has had some swelling to right side of neck as well for about the same amount of time. . Historical: - Allergies: 14:05 No Known Allergies; ko1 - Home Meds: 14:05 Unable to obtain [Active]; ko1 - PMHx: 14:05 chronic back pain; Hypertension; Hypothyroidism; ko1 - PSHx: 14:05 right foot surgery; Cholecystectomy; ko1 - Immunization history:: Adult Immunizations unknown. - Infectious Disease History:: Denies. - Social history:: Smoking status: Patient denies any tobacco usage or history of. ROS: 14:10 Constitutional: As per HPI kb Exam: 14:10 Constitutional: This is a well developed, well nourished patient who is awake, alert, kb and in no acute distress. Head/Face: Normocephalic, atraumatic. ENT: Moist Mucous membranes Cardiovascular: Regular rate Respiratory: Respirations even and unlabored. No increased work of breathing. Talking in full sentences Skin: Warm, dry with normal turgor. Normal color. MS/ Extremity: Pulses equal, no cyanosis. Neurovascular intact. Full, normal range of motion. Neuro: Awake and alert, GCS 15, oriented to person, place, time, and situation. 14:10 Neck: External neck: swelling, that is mild, of the right sternocleidomastoid, 16:06 ECG was reviewed by the Attending Physician. kb Vital Signs: 14:00 BP 128 / 95; Pulse 87; Resp 18; Temp 97.5; Pulse Ox 99% ; ko1 15:25 BP 145 / 83 Supine; Pulse 72; me1 15:26 BP 145 / 82 Sitting; Pulse 73; me1 15:27 BP 123 / 84 Standing; Pulse 73; me1 16:00 BP 146 / 83; Pulse 71; Resp 15; Pulse Ox 98% ; me1 17:00 BP 178 / 68; Pulse 72; Resp 15; Pulse Ox 100% ; me1 17:26 BP 176 / 92; Pulse 81; Resp 16; Temp 98; Pulse Ox 97% ; me1 MDM: 14:00 Medical Screening Exam initiated kb 14:11 Data reviewed: vital signs, nurses notes. kb 17:16 Differential diagnosis: closed head injury, dehydration, abnormal electrolytes, kb arrhythmia. Consideration of Admission/Observation Escalation of care including admission/observation considered. admission considered but pt has no neuro deficits, CT and CTA wnl. Educated to follow up with PCP/neurology. . Historians other than the Patient: Family Member: cousin. Counseling: I had a detailed discussion with the patient and/or guardian regarding the historical points, exam findings, and any diagnostic results supporting the discharge/admit diagnosis, lab results, radiology results, the need for outpatient follow up, a family practitioner, a neurologist, to return to the emergency department if symptoms worsen or persist or if there are any questions or concerns that arise at home. 04/18 14:10 Order name: Basic Metabolic Panel; Complete Time: 15:22 kb 04/18 14:10 Order name: CBC with Diff; Complete Time: 14:51 kb 04/18 14:10 Order name: Hepatic Function; Complete Time: 15:22 kb 04/18 14:10 Order name: Magnesium; Complete Time: 15:22 kb 04/18 14:10 Order name: Protime (+inr); Complete Time: 15:22 kb 04/18 14:10 Order name: Ptt, Activated kb 04/18 14:10 Order name: Troponin High Sensitivity; Complete Time: 15:22 kb 04/18 14:10 Order name: Urinalysis w/ reflexes; Complete Time: 16:30 kb 04/18 14:10 Order name: CT Head Brain wo Cont; Complete Time: 14:48 kb 04/18 14:10 Order name: Chest Single View XRAY; Complete Time: 14:40 kb 04/18 14:10 Order name: CT Head Angio; Complete Time: 14:51 kb 04/18 14:10 Order name: CT Neck Angio; Complete Time: 14:51 kb 04/18 14:10 Order name: Cardiac monitoring; Complete Time: 15:39 kb 04/18 14:10 Order name: EKG - Nurse/Tech; Complete Time: 15:39 kb 04/18 14:10 Order name: IV Saline Lock; Complete Time: 15:39 kb 04/18 14:10 Order name: Labs collected and sent; Complete Time: 15:39 kb 04/18 14:10 Order name: NPO; Complete Time: 15:39 kb 04/18 14:10 Order name: O2 Per Protocol; Complete Time: 15:39 kb 04/18 14:10 Order name: O2 Sat Monitoring; Complete Time: 15:39 kb 04/18 14:10 Order name: Orthostatics; Complete Time: 15:39 kb EC:06 Rate is 75 beats/min. Rhythm is regular. QRS [place] is Normal. TX interval is normal at kb 198 msec. QRS interval is normal at 106 msec. QT interval is normal at 451 msec. Administered Medications: 16:39 CANCELLED (Duplicate Order): ns 0.9% 1000 ml IV at 1000 ml once; to be given as a bolus kb over 60 minutes 16:41 Drug: NS 0.9% IV 500 ml 500 ml IV at 1 bolus once; to be given as a bolus over 30 me1 minutes Volume: 500 ml; Route: IV; Rate: 1 bolus; Site: right antecubital; 17:14 Follow up: Response: No adverse reaction; IV Status: Completed infusion; IV Intake: me1 500ml Disposition: 14:15 I was immediately available on-site in the Emergency Department for consultation in the ms3 care of the patient. Disposition Summary: 04/18/24 17:18 Discharge Ordered Notes: Location: Home kb Condition: Stable kb Diagnosis - Weakness kb - Fall on same level, unspecified kb Followup: kb - With: Emergency Department - When: As needed - Reason: Worsening of condition Followup: kb - With: Private Physician - When: 2 - 3 days - Reason: Recheck today's complaints, Continuance of care, Re-evaluation by your physician Discharge Instructions: - Discharge Summary Sheet kb - Near-Syncope, [id number] kb - Weakness, [id number] kb Forms: - Medication Reconciliation Form kb - Antibiotic Education kb - Prescription Opioid Use kb - Patient Portal Instructions kb - Leadership Thank You Letter kb Signatures: Dispatcher [employer] EDIL Bethany Lea FNP-Tim PARSONS-Tigre Deluna DO DO ms3 Krista Moseley, RN RN ko1 Nilam Ritter RN RN me1 Corrections: (The following items were deleted from the chart) 14:10 14:10 Head Angio+CT.RAD.BRZ ordered. EDIL EDMS 14:11 14:11 Neck Angio+CT.RAD.BRZ ordered. EDIL EDMS 16:39 16:32 NS 0.9% IV 1000 ml IV at 1000 ml once; to be given as a bolus over 60 minutes kb ordered. kb
[2024-04-18 18:17] VITALS: BP 176/92; TEMP 98; O2SAT 97
--- NOTE | 2024-04-19 11:29 | EKG ---
Test Date: 2024-04-18 Test Time: 15:30:36 Cnc Operator Machinist: MEASUREMENT RESULTS: Intervals: Rate: 75 HI: 198 QRSD: 106 QT: 404 QTc: 451 [place]: P: 60 HI: 198 QRS: 44 T: 65 INTERPRETIVE STATEMENTS: Normal sinus rhythm Low voltage QRS Nonspecific T wave abnormality Abnormal ECG Compared to ECG 08/13/2021 12:36:40 Low QRS voltage now present T-wave abnormality still present Electronically Signed On 04-19-24 11:27:53 WORKSHOP MANAGER by Nicholas Elmore
== END 2024-04-18 17:48 | disposition home or self-care (01) ==
LOC: ER 13:55
DX: R53.1 Weakness (principal); R22.1 Localized swelling, mass and lump, neck; W18.30XA Fall on same level, unspecified, initial encounter; I10 Essential (primary) hypertension
CPT/HCPCS: 85025; 81001; 80048; 36415; 83735; 85610; 82565; 80076; 85730; 84484; 70450; 70496; 70498; 71045; Q9967; J7040; 93005